=== PATIENT | female | born 1980 | race Caucasian/White ===

== ENCOUNTER 2018-11-16 13:24 | Emergency (ER) | payer BC ==
[~2018-11-16] VITALS: Ht 160 cm; Wt 56.8 kg
[2018-11-16 13:25] VITALS: BP 140/79; PULSE 88; RESP 20; Ht 160 cm; Wt 56.8 kg
[2018-11-16] MEDS ORDERED: SOD CHLORIDE 0.9% 1,000 ML IV STA (13:32)
[2018-11-16] MEDS ORDERED: DESO1TAB72 PO (14:06)
[2018-11-16] MEDS ORDERED: OMEP20CA16 PO (14:08)
--- NOTE | 2018-11-16 15:33 | ERD ---
ER Documentation Chief Complaint Chief Complaint Dizziness/headache since 0900 got worse at 1300 while working HPI Patient is a 38-year-old female with a history of Rogers's palsy who presents with dizziness. 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 She reports that she had a slightly elevated blood pressure with a systolic of 140. She is refusing laboratory studies at this time. She had an Accu-Chek done during the code green which was 100. She says that she is under a lot of stress recently at work. ROS All systems reviewed and are negative except as per history of present illness. Medications Home Meds Reported Medications Desogestrel-Ethinyl Estradiol (ENSKYCE) 1 Each Tablet, 1 TAB PO DAILY, TAB 11/16/18 Discontinued Reported Medications Omeprazole* (Omeprazole*) 20 Mg Capsule.dr, 20 MG PO DAILY, #30 CAP 11/16/18 PMhx/Soc Medical and Surgical Hx: pt denies Medical Hx, pt denies Surgical Hx Hx Neurological Disorder: Yes (Rogers's Palsy) Hx Alcohol Use: No Hx Substance Use: No Hx Tobacco Use: No Smoking Status: Never smoker FmHx Family History: No diabetes Physical Exam Vitals Vital Signs Date Temp Pulse Resp B/P (MAP) Pulse Ox O2 O2 Flow FiO2 Time Delivery Rate 11/16/18 98.4 85 20 119/76 99 Room Air 13:25 (90) 11/16/18 98.4 88 20 140/79 99 13:25 (99) Physical Exam Const: No acute distress Head: Atraumatic Eyes: Normal Conjunctiva ENT: 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 No meningismus. Resp: Clear to auscultation bilaterally Cardio: Regular rate and rhythm, no murmurs Abd: Soft, non tender, non distended. Normal bowel sounds Skin: No petechiae or rashes Back: No midline or flank tenderness Ext: No cyanosis, or edema Neur: Awake and alert, left-sided facial droop which is chronic for patient, patient is diffusely weak but no focal upper or lower extremity weakness Psych: Normal Mood and Affect Results 24 hrs Current Medications Medications Dose Sig/Anika Start Time Status Last (Trade) Ordered Route PRN Stop Time Admin Dose Reason Admin Sodium 1,000 ml @ Q1H STAT 11/16/18 DC Chloride 1,000 mls/hr IV 13:32 11/16/18 14:24 Procedures/MDM Patient refused CT head. Patient refused laboratory studies. Patient is a 38-year-old female with a history of Rogers's palsy who presents with weakness. She is refusing head CT and laboratory studies at this time. She has no obvious focal weakness. Her came to pick her up and he said this is the usual occurrence for her and he is familiar with this presentation in the past. At this point I doubt stroke, intra-cranial mass, or intracranial bleed. I believe outpatient management is appropriate but the patient will need close follow-up with her primary doctor within 24-48 hours. She can return for any worsening symptoms. I doubt hypoglycemia as her Accu-Chek was normal up stairs. Departure Diagnosis: Primary Impression: Dizziness Condition: Fair Patient Instructions: Dizziness, Unk Cause Referrals: Your doctor Additional Instructions: Call your primary care doctor TOMORROW for an appointment during the next 1-2 days.See the doctor sooner or return here if your condition worsens before your appointment time. ЕЛЕНА RUELAS MD Nov 16, 2018 15:33
== END 2018-11-16 14:24 | disposition left against medical advice (07) ==
LOC: E/R 13:24
DX: R42 Dizziness and giddiness (principal)
CPT/HCPCS: 99283; J7030; 93005